=== PATIENT | female | born 1975 | race Caucasian/White ===

== ENCOUNTER 2017-12-22 07:48 | Inpatient (IN) ==
[2017-12-22] MEDS: 0.9 % Sodium Chloride 1,000 ML IVC SCH ×2 (11:39→21:41)
[2017-12-22] MEDS ORDERED: Acetaminophen 325 MG TABLET PO ONE (12:49)
[2017-12-22] MEDS ORDERED: Ibuprofen 400 MG TABLET PO ONE (13:15)
[2017-12-22] MEDS ORDERED: Chloraseptic Spray 177 ML BOTTLE MM PRN (16:55)
[2017-12-22] MEDS: Ketorolac 30 MG/ML VIAL IVP PRN (18:22)
--- NOTE | 2017-12-22 18:40 | Internal Med History&Physical ---
Date of Encounter: 12/22/17 Time of Encounter: 10:00 Internal Medicine - H&P: HPI Chief complaint: Dysuria Admitted From: Hospital to Hospital Transfer Plans for Post Hospital Care: Home History of present illness: Patient is a 41-year-old female with past medical history significant for stage III melanoma in 2002, hypertension and a 20 pack year smoker who presents as a transfer from [facility] due to sepsis secondary to UTI. Patient presented to the [place] [facility] due to a 3-4 day history of fever and chills with a MAXIMUM TEMPERATURE of 103.5 in addition to dysuria and urinary frequency. Patient decided to present to the [place] [facility] for evaluation. Patient was found to have a WBC of 35.7 with a temp of 100.2 and a heart rate of 116 in addition to elevated LFTs. Patient was transferred to [facility] due to sepsis secondary to UTI. Past Med Surg Social Fam HX - Past Medical History Medical history: cancer, DVT, GERD, hypertension, other Additional medical history: Increased heart rate. Stage 3 metastatic melanoma rt groin. Psychiatric history: depression - Past Surgical History Surgical History: cholecystectomy Additional surgical history: Lymph node removal from right groin, right knee surgery, tubal ligation - Social History Smoking Status: Current every day smoker Packs per day: 1 Smokeless Tobacco Status: No Alcohol use: none Drug use: none - Family History Mother Living Status: Still Living Hx Family Cardiac Disorders: Yes (HTN, MITRAL VALVE PROLAPSE) Hx Family Cancer: Yes Internal Medicine - H&P: Meds Baclofen [Lioresal] 10 mg PO TID 12/22/17 [History] Calcium Carbonate/Vitamin D3 [Calcium 500 + Vit D Caplet] 1 tab PO DAILY [History] Cholecalciferol (D-3) [Vitamin D] 2,000 unit PO DAILY 12/22/17 [History] Desipramine [Norpramine] 25 mg PO HS 12/22/17 [History] Diclofenac Sodium [Voltaren] 50 mg PO Q8HR 12/22/17 [History] HydrOXYzine 10 mg PO BID 12/22/17 [History] Hydrochlorothiazide [Microzide] 12.5 mg PO DAILY 12/22/17 [History] Lisinopril [Zestril] 10 mg PO DAILY 12/22/17 [History] Melatonin [Melatin] 9 mg PO HS 12/22/17 [History] Metoprolol [Lopressor] 50 mg PO BID 12/22/17 [History] Omeprazole [PriLOSEC] 40 mg PO DAILY 12/22/17 [History] Ranitidine HCl [Zantac 75] 75 mg PO BID 12/22/17 [History] Venlafaxine [Effexor] 37.5 mg PO BID 12/22/17 [History] 3 Allergy/AdvReac Type Severity Reaction Status Date / Time diphenhydramine AdvReac Palpitation Verified 12/22/17 05:33 [From Benadryl] s All Systems PM: A 10-system review of systems was performed and is negative for pertinent findings except as documented above in the HPI. - Constitutional Vitals: Temp Pulse Resp BP Pulse Ox 99.4 F 125 15 101/66 100 12/22/17 17:00 12/22/17 17:00 12/22/17 17:00 12/22/17 17:00 12/22/17 17:00 General appearance: Present: A&O X 3, no acute distress - Eye Eye exam: Present: normal appearance - ENT ENT exam: Present: mucous membranes moist - Respiratory Respiratory exam: Present: CTAB. Absent: accessory muscle use, rales, rhonchi, wheezes - Cardiovascular Cardiovascular exam: Present: RRR, +S1, +S2. Absent: diastolic murmur, gallop, rubs, systolic murmur - GI/Abdominal GI/Abdominal exam: Present: normal bowel sounds, soft, no peritoneal signs. Absent: distended, tenderness - Extremities Exam Extremities exam: Absent: pedal edema - Neurological Exam Neurological exam: Present: oriented X3 - Psychiatric Psychiatric exam: Present: normal mood - Skin Skin exam: Present: normal color - Assessment and plan (1) Sepsis Current Visit: Yes Status: Acute Assessment and plan: Patient was found to have a WBC of 35.7 with a temp of 100.2 and a heart rate of 116 in addition to elevated LFTs. Patient also with pyuria urinalysis and symptoms of dysuria/and or frequency Will continue IV fluids and IV Zosyn started at [place] [facility] Qualifiers: Sepsis type: sepsis due to unspecified organism Qualified Code(s): A41.9 - Sepsis, unspecified organism (2) UTI (urinary tract infection) Current Visit: No Status: Acute Assessment and plan: Patient with pyuria on urinalysis; urine culture pending Patient's symptomatic so we will continue IV Zosyn as above Qualifiers: Encounter type: initial encounter Qualified Code(s): T83.510A - Infection and inflammatory reaction due to cystostomy catheter, initial encounter; N39.0 - Urinary tract infection, site not specified (3) HTN (hypertension) Current Visit: Yes Status: Acute Assessment and plan: Blood pressure controlled; continue home medications Qualifiers: Hypertension type: essential hypertension Qualified Code(s): I10 - Essential (primary) hypertension (4) DVT prophylaxis Current Visit: Yes Status: Acute Assessment and plan: Subcutaneous heparin - Time Spent With Patient Total time spent is greater than 50% in coordination of care (as documented) at patient's floor/unit and/or counseling patient:
[2017-12-22] MEDS ORDERED: Naloxone 0.4 MG/ML INJ IVP PRN (18:45)
[2017-12-22] MEDS: Famotidine 20 MG TABLET PO SCH (21:40)
[2017-12-22] MEDS: Baclofen 10 MG TABLET PO SCH (21:40)
[2017-12-22] MEDS: Melatonin 3 MG TABLET PO SCH (21:41)
[2017-12-22] MEDS: *HR* Heparin 5,000 UNIT/ML VIAL SQ SCH (21:43)
[2017-12-22] MEDS ORDERED: *HR* HYDROcodone/Acet 7.5/325 mg TABLET PO ONE (23:21)
[2017-12-22] MEDS: Piperacillin/Tazobactam 3.375 GM in 0.9 % Sodium Chloride Mini Bag 100 ML IVPB SCH (23:34)
[2017-12-23 04:46] LABS: Basophils % 0.2 %; Platelet Count 131 K/mcL (140-400)
[2017-12-23 04:47] LABS: Basophils # 0.1 K/mcL (0.0-0.2); Eosinophils # 0.1 K/mcL (0.0-0.6); Eosinophils % 0.4 %; Hematocrit 29.4 % (35.3-44.9); Hemoglobin 9.8 g/dL (11.5-15.4); Immature Granulocytes % 4.4 % (0-4); Lymphocytes # 2.7 K/mcL (0.6-4.6); Lymphocytes % 8.5 %; Mean Corpuscular HGB Conc 33.3 g/dL (31.6-35.5); Mean Corpuscular Hemoglobin 29.3 pg (28.0-33.3); Mean Platelet Volume 11.4 fL (9.4-12.4); Monocytes # 2.8 K/mcL (0.0-1.3); Monocytes % 8.8 %; Red Blood Count 3.34 M/mcL (3.82-4.97); Segmented Neutrophils % 77.7 %
[2017-12-23 04:58] LABS: Neutrophils # 24.9 K/mcL (1.6-8.9)
[2017-12-23 05:07] LABS: BUN/Creatinine Ratio 14 (6-26); Blood Urea Nitrogen 10 mg/dL (6-20); Calcium 8.3 mg/dL (8.6-10.3); Carbon Dioxide 20 mEq/L (23-29); Chloride 113 mEq/L (98-107); Glucose 183 mg/dL (70-105); Osmolality,Calculated 290 (280-300); Potassium 3.6 mEq/L (3.5-5.1); Sodium 138 mEq/L (136-145); eGFR For Non-African Americans > 60 (> 60)
[2017-12-23 05:13] LABS: Platelet Estimate Decreased (Normal)
[2017-12-23] MEDS: *HR* Heparin 5,000 UNIT/ML VIAL SQ SCH ×3 (05:47→21:43)
[2017-12-23] MEDS: Famotidine 20 MG TABLET PO SCH ×2 (08:26→21:43)
[2017-12-23] MEDS: Ketorolac 30 MG/ML VIAL IVP PRN (08:26)
[2017-12-23] MEDS: Baclofen 10 MG TABLET PO SCH ×3 (08:26→21:43)
[2017-12-23] MEDS: Piperacillin/Tazobactam 3.375 GM in 0.9 % Sodium Chloride Mini Bag 100 ML IVPB SCH ×2 (08:27→17:10)
[2017-12-23] MEDS: Cholecalciferol (D-3) 1,000 UNIT TABLET PO SCH (08:27)
[2017-12-23] MEDS ORDERED: *HR* OxyCODONE Immed Rel 5 MG TABLET PO PRN (08:34)
[2017-12-23] MEDS ORDERED: Ketorolac 30 MG/ML VIAL IVP PRN (08:41)
[2017-12-23] MEDS ORDERED: hydroCHLOROthiazide 25 MG TABLET PO SCH (09:00)
[2017-12-23] MEDS: *HR* OxyCODONE/APAP 5/325 TABLET PO PRN ×3 (09:07→19:10)
[2017-12-23] MEDS: (Calcium Carbonate/Vitamin D3 [Calcium 500 + Vit D Ca) PO SCH (09:08)
--- NOTE | 2017-12-23 14:02 | Internal Med Progress Note ---
<Charleen Elliott - Last Filed: 12/23/17 15:29> Hospitalist Progress Note - Encounter Date of Encounter: 12/23/17 Time of Encounter: 13:58 - Subjective Interval History: Patient's a 41-year-old female who presented to the emergency department [place] on 12/22/17 with complaints of fever, chills, dysuria and increased urinary frequency. She was [place] and admitted for sepsis likely secondary to urinary tract infection. Patient does have a history of MRSA bacteremia. Today patient is not feeling well today. Complains of pain in the right flank region that is localized, non radiating, dull achy. Pain also present in lower right abdomen and right sided groin pain. Patient says she had 2 swellings that she suspects are abscesses, one that has burst and is healing on belly the other one in the groin region is healing as well. Pain is sharp, shooting and localized. Positive for chills, sweats, fatigue, suprapubic pressure, R flank pain, dysuria , increased urgency. Denies CP, SOB, DB, Abdominal pain, nausea, vomiting, diarrhea, constipation, hematuria. - Exam Vitals: Temp Pulse Resp BP Pulse Ox 98.1 F 88 17 107/72 95 12/23/17 12:00 12/23/17 12:00 12/23/17 12:00 12/23/17 12:00 12/23/17 12:00 Exam: General: Conversant, No Apparent Distress, able to speak in full sentences and follow commands Neck: No JVD, trachea midline HEENT: PERRL, normocephalic, atraumatic Cardiac: Reg Rate and Rhythm, Normal S1 and S2, No murmurs appreciated Pulmonary: Normal Breath Sounds, No Wheezes, Rales, or Rhonchi, Not in respiratory distress on room air Abdomen: soft, mild suprapubic tenderness, no bruits, no guarding, Neuro: Alert and responsive, No focal deficits noted Vascular: Normal capillary refill Skin: Noted [id number] healing abscess without evidence of induration, erythema, or surrounding warmth in left lower abdomen/pubic area Musculoskeletal: No Chest Wall Tenderness, Right CVA tenderness Extremities: No Clubbing, No Cyanosis, No Edema, Normal Pulses Psych: Normal mood, pleasant, conversant - Assessment and Plan (1) Sepsis Current Visit: Yes Status: Acute Assessment and Plan: * On presentation to [place] the patient had MAXIMUM TEMPERATURE of 100.2, white blood cell count of 35.7 and heart rate of 116 * At this point the patient continues to be intermittently tachycardic but is afebrile. Leukocytosis decreased to 32 today. Will recheck CBC in AM * Given history of MRSA bacteremia we will continue IV Zosyn at 25 mls per hour and IV vancomycin until urine and blood cultures return then will consider narrowing therapy * Likely her source of infection is UTI but should her cultures return unremarkable will investigate the possibility of pyelonephritis versus PID versus bacteremia secondary to cellulitis * Continue on Toradol 15 mg every 6 as needed for mild pain, Percocet 5/325 every 4 hours when necessary for moderate pain, and oxycodone 10 mg every 6 hours for severe pain (2) HTN (hypertension) Current Visit: Yes Status: Acute Assessment and Plan: * Patient continues on home dose of metoprolol 50 mg twice a day * Thus far blood pressures have been stable (3) DVT prophylaxis Current Visit: Yes Status: Acute Assessment and Plan: * Patient continued us on heparin 5000 units subcutaneous every 8 hours for DVT prophylaxis - Time Spent with Patient Total time spent is greater than 50% in coordination of care (as documented) at patient's floor/unit and/or counseling patient: 25 - 35 minutes Plan of Care Discussed with: patient Internal Medicine: Result - Labs CBC & Chem 7: 12/23/17 04:22 12/23/17 04:22 Labs: Short CBC 12/23/17 Range/Units 04:22 WBC 32.0 H* (4.3-11.1) K/mcL Hgb 9.8 L (11.5-15.4) g/dL Hct 29.4 L (35.3-44.9) % Plt Count 131 L (140-400) K/mcL Neutrophils # 24.9 H (1.6-8.9) K/mcL BMP 12/23/17 04:22 Sodium 138 Potassium 3.6 Chloride 113 H Carbon Dioxide 20 L BUN 10 Creatinine 0.73 Glucose 183 H Calcium 8.3 L Consult Discharge Plan - Plan Referrals: Miguel Vang MD [Primary Care Provider] - <Satnam Mullins - Last Filed: 12/24/17 07:39> Hospitalist Progress Note - Encounter Date of Encounter: 12/23/17 - Exam Vitals: Temp Pulse Resp BP Pulse Ox 97.9 F 100 16 121/82 95 12/24/17 07:25 12/24/17 07:25 12/24/17 07:25 12/24/17 07:25 12/24/17 07:25 - Assessment and Plan (1) UTI (urinary tract infection) Current Visit: No Status: Inactive (2) Sepsis Current Visit: Yes Status: Acute (3) HTN (hypertension) Current Visit: Yes Status: Acute (4) DVT prophylaxis Current Visit: Yes Status: Acute - Time Spent with Patient Total time spent is greater than 50% in coordination of care (as documented) at patient's floor/unit and/or counseling patient: Internal Medicine: Result - Labs CBC & Chem 7: 12/24/17 04:17 12/24/17 04:17 Labs: Short CBC 12/24/17 Range/Units 04:17 WBC 15.8 H D (4.3-11.1) K/mcL Hgb 9.1 L (11.5-15.4) g/dL Hct 28.2 L (35.3-44.9) % Plt Count 142 (140-400) K/mcL Neutrophils # 11.4 H (1.6-8.9) K/mcL BMP 12/24/17 04:17 Sodium 138 Potassium 3.7 Chloride 112 H Carbon Dioxide 21 L BUN 10 Creatinine 0.67 Glucose 83 Calcium 8.4 L - Attending Attestation I examined this patient and my medical decision-making was reviewed with the Resident Physician Dr. Elliott. I agree with the documented findings, disposition and treatment plan as described except to the extent set forth below. Ms. Gooden is a 41 y/o F with PMH of Stage 3 melanoma in 2002, HTN and tobacco dependence pt presented to [place] ER fever, chills, b/l flank pain. She does have UTI and possible Pyelonephritis. Pt also mentioned a small abscess in her lower abdomen wall region which was drained before she came to the hospital. Gen: A, A, O x 3 Chest: Diminished BS b/l Abd: small 1x1cm induration noticed over lower abdomen region. Back: Rt CVA tenderness + a/p 1. Sepsis with UTI 2. Concerning for Pyelonephritis IV hydration IV abx Zosyn 3. Abdomen wall abscess no active draiange cont Zosyn and Vancomycin for now since pt had h/o MRSA in the past <Charleen Elliott - Last Filed: 12/23/17 15:29> (1) Sepsis Qualifiers: Sepsis type: sepsis due to unspecified organism Qualified Code(s): A41.9 - Sepsis, unspecified organism (2) HTN (hypertension) Qualifiers: Hypertension type: essential hypertension Qualified Code(s): I10 - Essential (primary) hypertension <Satnam Mullins - Last Filed: 12/24/17 07:39> (1) UTI (urinary tract infection) Qualifiers: Encounter type: initial encounter Qualified Code(s): T83.510A - Infection and inflammatory reaction due to cystostomy catheter, initial encounter; N39.0 - Urinary tract infection, site not specified (2) Sepsis Qualifiers: Sepsis type: sepsis due to unspecified organism Qualified Code(s): A41.9 - Sepsis, unspecified organism (3) HTN (hypertension) Qualifiers: Hypertension type: essential hypertension Qualified Code(s): I10 - Essential (primary) hypertension
[2017-12-23] MEDS: 0.9 % Sodium Chloride 1,000 ML IVC SCH ×2 (14:14→17:27)
[2017-12-23] MEDS: Melatonin 3 MG TABLET PO SCH (21:43)
[2017-12-24] MEDS: *HR* OxyCODONE/APAP 5/325 TABLET PO PRN ×5 (00:21→20:39)
[2017-12-24] MEDS: Piperacillin/Tazobactam 3.375 GM in 0.9 % Sodium Chloride Mini Bag 100 ML IVPB SCH ×3 (01:28→15:11)
[2017-12-24 05:03] LABS: Basophils % 0.3 %; Eosinophils # 0.2 K/mcL (0.0-0.6); Eosinophils % 1.2 %; Hematocrit 28.2 % (35.3-44.9); Hemoglobin 9.1 g/dL (11.5-15.4); Immature Granulocytes % 0.8 % (0-4); Lymphocytes # 2.8 K/mcL (0.6-4.6); Lymphocytes % 17.6 %; Mean Corpuscular HGB Conc 32.3 g/dL (31.6-35.5); Mean Corpuscular Hemoglobin 28.5 pg (28.0-33.3); Mean Corpuscular Volume 88.4 fL (83.0-100.0); Mean Platelet Volume 11.5 fL (9.4-12.4); Monocytes # 1.3 K/mcL (0.0-1.3); Monocytes % 8.2 %; Platelet Count 142 K/mcL (140-400); Red Blood Count 3.19 M/mcL (3.82-4.97); Red Cell Distribution Width 16.4 % (11.5-14.5); Segmented Neutrophils % 71.9 %
[2017-12-24 05:07] LABS: Basophils # 0.1 K/mcL (0.0-0.2); Neutrophils # 11.4 K/mcL (1.6-8.9)
[2017-12-24 05:22] LABS: BUN/Creatinine Ratio 15 (6-26); Blood Urea Nitrogen 10 mg/dL (6-20); Calcium 8.4 mg/dL (8.6-10.3); Carbon Dioxide 21 mEq/L (23-29); Chloride 112 mEq/L (98-107); Glucose 83 mg/dL (70-105); Osmolality,Calculated 284 (280-300); Potassium 3.7 mEq/L (3.5-5.1); Sodium 138 mEq/L (136-145); eGFR For Non-African Americans > 60 (> 60)
[2017-12-24] MEDS: *HR* Heparin 5,000 UNIT/ML VIAL SQ SCH ×3 (06:35→22:05)
[2017-12-24] MEDS: Famotidine 20 MG TABLET PO SCH ×2 (09:22→22:04)
[2017-12-24] MEDS: Cholecalciferol (D-3) 1,000 UNIT TABLET PO SCH (09:23)
[2017-12-24] MEDS: Baclofen 10 MG TABLET PO SCH ×3 (09:23→22:04)
[2017-12-24] MEDS: (Calcium Carbonate/Vitamin D3 [Calcium 500 + Vit D Ca) PO SCH (09:30)
[2017-12-24] MEDS: 0.9 % Sodium Chloride 1,000 ML IVC SCH (09:30)
[2017-12-24] MEDS ORDERED: Ondansetron 4 MG/2 ML VIAL IVP PRN (12:34)
[2017-12-24] MEDS ORDERED: Aminoglycoside Consult 1 EACH MC ONE (14:17)
--- NOTE | 2017-12-24 14:49 | Internal Med Progress Note ---
<Charleen Elliott - Last Filed: 12/24/17 16:58> Hospitalist Progress Note - Encounter Date of Encounter: 12/24/17 Time of Encounter: 16:58 - Subjective Interval History: Patient's a 41-year-old female who presented to the emergency department [place] on 12/22/17 with complaints of fever, chills, dysuria and increased urinary frequency. She was transferred to [place] and admitted for sepsis likely secondary to urinary tract infection. Patient does have a history of MRSA bacteremia. Today she states she is feeling anxious about the amount of fluids she has been given as she was told she has crackles in her lungs. She continues to feel short of breath and has a productive cough. She has declined further IVF as she is worried about the amount of fluids she is getting and their effects on her lungs. Otherwise she has had no difficulty urinating but has had intermittent nausea. - Exam Vitals: Temp Pulse Resp BP Pulse Ox 98.1 F 105 19 133/95 93 12/24/17 10:51 12/24/17 10:51 12/24/17 10:51 12/24/17 10:51 12/24/17 10:51 Exam: General: Conversant, pleasant white female laying in bed, appears anxious, able to speak in full sentences and follow commands Neck: No JVD, trachea midline HEENT: PERRL, normocephalic, atraumatic Cardiac: tachycardic, regular Rhythm, Normal S1 and S2, No murmurs appreciated Pulmonary: Normal Breath Sounds, No Wheezes, Rales, or Rhonchi, Not in respiratory distress Abdomen: soft, tontender, no bruits, no guarding Neuro: Alert and responsive, No focal deficits noted Vascular: Normal capillary refill Skin: small 1x1cm nonindurated abscess in left lower abdomen, unchanged since yesterday, no surrounding erythema or warmth Musculoskeletal: No Chest Wall Tenderness Extremities: No Clubbing, No Cyanosis, No Edema, Normal Pulses Psych: Normal mood, pleasant, conversant - Assessment and Plan (1) Sepsis Current Visit: Yes Status: Acute Assessment and Plan: * At this point the patient continues to be intermittently tachycardic but is afebrile. WBC down to 15.8 today but spiked a fever to 101.9 with SpO2 91% on RA. Given her history of PE and new onset hypoxia will obtain CTA chest. * IVF initially cancelled due to adequate PO intake but given her fever, will add them back at lower rate of 75ml/hour. * Given history of MRSA bacteremia we will continue IV Zosyn at 25 mls per hour but will discontinue vancomycin given the source of her infection was likely urinary and her cellulitic infection is clearing * Urinary culture significant for E. coli resistant to Cipro, bactrim, and levofloxacin, will continue zosyn for the time being then discharge her with narrowed therapy with adequate coverage * Continue on Toradol 15 mg every 6 as needed for mild pain, Percocet 5/325 every 4 hours when necessary for moderate pain, and oxycodone 10 mg every 6 hours for severe pain * Zofran 4mg q 6 prn added for nausea secondary to pain medications (2) HTN (hypertension) Current Visit: Yes Status: Acute Assessment and Plan: * Continues on home dose of lopressor 50mg BID, blood pressures have been stable so far (3) DVT prophylaxis Current Visit: Yes Status: Acute Assessment and Plan: * Continues on heparin 5000U q 8 for DVT prophylaxis - Time Spent with Patient Total time spent is greater than 50% in coordination of care (as documented) at patient's floor/unit and/or counseling patient: 25 - 35 minutes Plan of Care Discussed with: patient Internal Medicine: Result - Labs CBC & Chem 7: 12/24/17 04:17 12/24/17 04:17 Labs: Short CBC 12/24/17 Range/Units 04:17 WBC 15.8 H D (4.3-11.1) K/mcL Hgb 9.1 L (11.5-15.4) g/dL Hct 28.2 L (35.3-44.9) % Plt Count 142 (140-400) K/mcL Neutrophils # 11.4 H (1.6-8.9) K/mcL BMP 12/24/17 04:17 Sodium 138 Potassium 3.7 Chloride 112 H Carbon Dioxide 21 L BUN 10 Creatinine 0.67 Glucose 83 Calcium 8.4 L Consult Discharge Plan - Plan Referrals: Miguel Vang MD [Primary Care Provider] - <Satnam Mullins - Last Filed: 12/24/17 17:21> Hospitalist Progress Note - Encounter Date of Encounter: 12/24/17 - Exam Vitals: Temp Pulse Resp BP Pulse Ox 101.9 F H 110 19 138/83 91 12/24/17 15:45 12/24/17 15:45 12/24/17 15:45 12/24/17 15:45 12/24/17 15:45 - Assessment and Plan (1) UTI (urinary tract infection) Current Visit: No Status: Inactive (2) Sepsis Current Visit: Yes Status: Acute (3) HTN (hypertension) Current Visit: Yes Status: Acute (4) DVT prophylaxis Current Visit: Yes Status: Acute - Time Spent with Patient Total time spent is greater than 50% in coordination of care (as documented) at patient's floor/unit and/or counseling patient: Internal Medicine: Result - Labs CBC & Chem 7: 12/24/17 04:17 12/24/17 04:17 Labs: Short CBC 12/24/17 Range/Units 04:17 WBC 15.8 H D (4.3-11.1) K/mcL Hgb 9.1 L (11.5-15.4) g/dL Hct 28.2 L (35.3-44.9) % Plt Count 142 (140-400) K/mcL Neutrophils # 11.4 H (1.6-8.9) K/mcL BMP 12/24/17 04:17 Sodium 138 Potassium 3.7 Chloride 112 H Carbon Dioxide 21 L BUN 10 Creatinine 0.67 Glucose 83 Calcium 8.4 L - Attending Attestation I examined this patient and my medical decision-making was reviewed with the Resident Physician Dr. Elliott. I agree with the documented findings, disposition and treatment plan as described except to the extent set forth below. Ms. Gooden is a 41 y/o F with PMH of Stage 3 melanoma in 2002, HTN and tobacco dependence pt presented to [place] ER fever, chills, b/l flank pain. She does have UTI and possible Pyelonephritis. Pt also mentioned a small abscess in her lower abdomen wall region which was drained before she came to the hospital. Pt does co severe cough and upper back pain today Gen: A, A, O x 3 Chest: Diminished BS b/l Abd: small 1x1cm induration noticed over lower abdomen region. Back: Rt CVA tenderness + a/p 1. Sepsis with UTI 2. Concerning for Pyelonephritis Cont IV hydration IV abx Zosyn 3. Abdomen wall abscess no active drainage switched to PO Bactrim abx 4. Mild hypoxia and upper back pain concerning for PNA / need to r/o PE will obtain CTA of chest <Charleen Elliott - Last Filed: 12/24/17 16:58> (1) Sepsis Qualifiers: Sepsis type: sepsis due to unspecified organism Qualified Code(s): A41.9 - Sepsis, unspecified organism (2) HTN (hypertension) Qualifiers: Hypertension type: essential hypertension Qualified Code(s): I10 - Essential (primary) hypertension <Satnam Mullins - Last Filed: 12/24/17 17:21> (1) UTI (urinary tract infection) Qualifiers: Encounter type: initial encounter Qualified Code(s): T83.510A - Infection and inflammatory reaction due to cystostomy catheter, initial encounter; N39.0 - Urinary tract infection, site not specified (2) Sepsis Qualifiers: Sepsis type: sepsis due to unspecified organism Qualified Code(s): A41.9 - Sepsis, unspecified organism (3) HTN (hypertension) Qualifiers: Hypertension type: essential hypertension Qualified Code(s): I10 - Essential (primary) hypertension
[2017-12-24] MEDS ORDERED: Isovue-370 500 ML INFUS..BTL IV ONE (16:57)
[2017-12-24] MEDS ORDERED: Ibuprofen 600 MG TABLET PO PRN (17:29)
[2017-12-24] MEDS: Melatonin 3 MG TABLET PO SCH (22:05)
[2017-12-25] MEDS: Piperacillin/Tazobactam 3.375 GM in 0.9 % Sodium Chloride Mini Bag 100 ML IVPB SCH ×4 (00:21→23:53)
[2017-12-25] MEDS: 0.9 % Sodium Chloride 1,000 ML IVC SCH ×2 (00:23→14:37)
[2017-12-25] MEDS: *HR* OxyCODONE/APAP 5/325 TABLET PO PRN ×4 (01:34→20:49)
[2017-12-25] MEDS: *HR* Heparin 5,000 UNIT/ML VIAL SQ SCH ×3 (05:24→22:25)
[2017-12-25] MEDS: Cholecalciferol (D-3) 1,000 UNIT TABLET PO SCH (08:24)
[2017-12-25] MEDS: Baclofen 10 MG TABLET PO SCH ×3 (08:25→20:26)
[2017-12-25] MEDS: Famotidine 20 MG TABLET PO SCH ×2 (08:25→20:26)
--- NOTE | 2017-12-25 10:15 | Internal Med Progress Note ---
<TrianaJames - Last Filed: 12/25/17 15:21> Hospitalist Progress Note - Encounter Date of Encounter: 12/25/17 Time of Encounter: 09:45 - Subjective Interval History: Pt seen and examined. She states she is feeling better yesterday in terms of her breathing. States she has some mild chest discomfort with cough and has had change in sputum production from clear to yellow. Also complaining of diarrhea, 6-7 episodes yesterday and 3 so far today, very watery. - Exam Vitals: Temp Pulse Resp BP Pulse Ox 98.9 F 93 18 148/100 95 12/25/17 07:27 12/25/17 07:27 12/25/17 07:27 12/25/17 07:27 12/25/17 07:27 Exam: Gen: NAD, alert, awake HEENT: NCAT, EOMI, neck supple, no LAD Cardiac: RRR, no murmur Lungs: CTAB Abd: bruising in RLQ from heparin shots Ext: no edema, erythema Neuro: appropriate affect, answers questions appropriately - Assessment and Plan (1) Sepsis Current Visit: Yes Status: Acute Assessment and Plan: Secondary to UTI as UA positive for E. Coli resistant to flouroquinolones and bactrim Had recent fever of 101.9 yesterday and cultures collected, preliminarily negative White count improved from 32 to 15.8, will recheck CBC tomorrow Continue patient on Zosyn for now (2) History of pulmonary embolism Current Visit: Yes Status: Acute Assessment and Plan: Patient admits to having "5 blood clots in her lungs" earlier this year in May which was managed in [place] Was never put on ferry terminal agent anticoagulation CTA ordered, will place powerglide to give contrast (3) HTN (hypertension) Current Visit: Yes Status: Chronic Assessment and Plan: Blood pressures most recently well controlled Continue home Metoprolol (4) DVT prophylaxis Current Visit: Yes Status: Acute Assessment and Plan: Heparin SQ 5000 units TID - Time Spent with Patient Total time spent is greater than 50% in coordination of care (as documented) at patient's floor/unit and/or counseling patient: Internal Medicine: Result - Labs CBC & Chem 7: 12/24/17 04:17 12/24/17 04:17 Consult Discharge Plan - Plan Referrals: Miguel Vang MD [Primary Care Provider] - <Thallapaneni,Rambabu - Last Filed: 12/25/17 18:24> Hospitalist Progress Note - Encounter Date of Encounter: 12/25/17 - Exam Vitals: Temp Pulse Resp BP Pulse Ox 98.4 F 93 18 138/84 98 12/25/17 15:16 12/25/17 15:16 12/25/17 15:16 12/25/17 15:16 12/25/17 15:16 - Assessment and Plan (1) UTI (urinary tract infection) Current Visit: No Status: Inactive (2) Sepsis Current Visit: Yes Status: Acute (3) HTN (hypertension) Current Visit: Yes Status: Chronic (4) DVT prophylaxis Current Visit: Yes Status: Acute - Time Spent with Patient Total time spent is greater than 50% in coordination of care (as documented) at patient's floor/unit and/or counseling patient: Internal Medicine: Result - Labs CBC & Chem 7: 12/24/17 04:17 12/24/17 04:17 - Attending Attestation I examined this patient and my medical decision-making was reviewed with the Resident Physician Dr. Triana. I agree with the documented findings, disposition and treatment plan as described except to the extent set forth below. Ms. Gooden is a 41 y/o F with PMH of Stage 3 melanoma in 2002, HTN and tobacco dependence pt presented to [place] ER fever, chills, b/l flank pain. She does have UTI and possible Pyelonephritis. Pt also mentioned a small abscess in her lower abdomen wall region which was drained before she came to the hospital. Pt states she is feeling better today Gen: A, A, O x 3 Chest: Diminished BS b/l Abd: small 1x1cm induration noticed over lower abdomen region. Back: Rt CVA tenderness + a/p 1. Sepsis with UTI 2. Concerning for Pyelonephritis Cont IV hydration IV abx Zosyn 3. Abdomen wall abscess no active drainage switched to PO Bactrim abx 4. Mild hypoxia and upper back pain 5. h/o PE concerning for PNA / need to r/o PE Waiting on CTA of chest <James Triana - Last Filed: 12/25/17 15:21> (1) Sepsis Qualifiers: Sepsis type: sepsis due to unspecified organism Qualified Code(s): A41.9 - Sepsis, unspecified organism (3) HTN (hypertension) Qualifiers: Hypertension type: essential hypertension Qualified Code(s): I10 - Essential (primary) hypertension <Satnam Mullins - Last Filed: 12/25/17 18:24> (1) UTI (urinary tract infection) Qualifiers: Encounter type: initial encounter Qualified Code(s): T83.510A - Infection and inflammatory reaction due to cystostomy catheter, initial encounter; N39.0 - Urinary tract infection, site not specified (2) Sepsis Qualifiers: Sepsis type: sepsis due to unspecified organism Qualified Code(s): A41.9 - Sepsis, unspecified organism (3) HTN (hypertension) Qualifiers: Hypertension type: essential hypertension Qualified Code(s): I10 - Essential (primary) hypertension
[2017-12-25] MEDS: Melatonin 3 MG TABLET PO SCH (20:26)
[2017-12-26 03:55] LABS: Basophils % 0.4 %; Eosinophils # 0.2 K/mcL (0.0-0.6); Eosinophils % 2.2 %; Hematocrit 26.6 % (35.3-44.9); Hemoglobin 8.9 g/dL (11.5-15.4); Immature Granulocytes % 0.9 % (0-4); Immature Platelets 4.7 % (1.1-6.1); Mean Corpuscular HGB Conc 33.5 g/dL (31.6-35.5); Mean Corpuscular Hemoglobin 28.8 pg (28.0-33.3); Mean Corpuscular Volume 86.1 fL (83.0-100.0); Mean Platelet Volume 10.4 fL (9.4-12.4); Monocytes # 1.3 K/mcL (0.0-1.3); Monocytes % 17.4 %; Neutrophils # 3.3 K/mcL (1.6-8.9); Platelet Count 196 K/mcL (140-400); Red Blood Count 3.09 M/mcL (3.82-4.97); Red Cell Distribution Width 15.9 % (11.5-14.5); Segmented Neutrophils % 43.1 %
[2017-12-26 03:59] LABS: Lymphocytes # 2.7 K/mcL (0.6-4.6)
[2017-12-26 05:02] LABS: BUN/Creatinine Ratio 16 (6-26); Blood Urea Nitrogen 11 mg/dL (6-20); Calcium 8.8 mg/dL (8.6-10.3); Carbon Dioxide 26 mEq/L (23-29); Chloride 106 mEq/L (98-107); Glucose 84 mg/dL (70-105); Osmolality,Calculated 287 (280-300); Potassium 3.6 mEq/L (3.5-5.1); Sodium 139 mEq/L (136-145); eGFR For Non-African Americans > 60 (> 60)
[2017-12-26] MEDS: *HR* Heparin 5,000 UNIT/ML VIAL SQ SCH ×2 (05:08→14:06)
[2017-12-26] MEDS: Baclofen 10 MG TABLET PO SCH (08:35)
[2017-12-26] MEDS: Cholecalciferol (D-3) 1,000 UNIT TABLET PO SCH (08:35)
[2017-12-26] MEDS: Famotidine 20 MG TABLET PO SCH (08:35)
[2017-12-26] MEDS: *HR* OxyCODONE/APAP 5/325 TABLET PO PRN (08:36)
[2017-12-26] MEDS: Piperacillin/Tazobactam 3.375 GM in 0.9 % Sodium Chloride Mini Bag 100 ML IVPB SCH (08:37)
[2017-12-26] MEDS ORDERED: levoFLOXacin 750 MG TABLET PO SCH (10:45)
[2017-12-26 11:41] VITALS: BP 124/78
--- NOTE | 2017-12-26 12:02 | Discharge Summary ---
<Charleen Elliott - Last Filed: 12/26/17 16:29> - NOTES TO OUTPATIENT PROVIDER Notes to Outpatient Provider: Given augmentin and levaquin course for UTI and suspected atypical pneumonia. Orders not resulted at time of discharge: Pending orders 12/24/17 18:20 Culture,Blood [BC] Routine Date of Encounter: 12/26/17 Time of Encounter: 11:52 - Discharge Diagnosis (1) Sepsis Priority: Primary Status: Acute Qualifiers: Sepsis type: sepsis due to unspecified organism Qualified Code(s): A41.9 - Sepsis, unspecified organism (2) HTN (hypertension) Priority: Secondary Status: Chronic Qualifiers: Hypertension type: essential hypertension Qualified Code(s): I10 - Essential (primary) hypertension (3) DVT prophylaxis Priority: Secondary Status: Acute Hospital course: Ms. Gooden is a 41 year old female who is transferred [facility] on for suspected urosepsis given urinary complaints and leukocytosis. She was treated with IV Vancomycin and Zosyn pending urine and blood cultures. Urine cultures revealed infection with Escherichia coli. Since time of admission patient has had no growth on her blood cultures. On 12/24 she spiked a fever thus repeat blood cultures were redrawn. She otherwise continued to complain of shortness of breath and given her history of DVT, tachycardia, and hypoxia she underwent CTA chest which revealed no evidence of pulmonary embolism but did reveal effusion and questionable consolidation. On discharge the patient was feeling significantly improved, not requiring any supplemental oxygen and was requesting discharge home. She was complaining of some loose stools C. difficile toxins were negative. She was discharged on a seven-day course of Levaquin and Augmentin. The patient is to follow-up with her primary care physician within the next week. Discussed the need for smoking cessation. Patient agrees with and understands the course of treatment plan including plan for discharge and follow-up. All questions answered. Discharge discussed with: patient, nurse Time spent discussing smoking cessation with patient: more than 10 minutes - Time Spent with Patient Total time spent providing and/or coordinating discharge services: Greater than 30 minutes - Discharge Medications Prescriptions: Amoxicillin/Clavulanate [Augmentin] 875 mg PO BIDWM 7 Days #14 tablet levoFLOXacin [Levaquin] 750 mg PO DAILY 7 Days #13 tablet Home Medications: Baclofen [Lioresal] 10 mg PO TID 12/22/17 [History] Calcium Carbonate/Vitamin D3 [Calcium 500 + Vit D Caplet] 1 tab PO DAILY [History] Cholecalciferol (D-3) [Vitamin D] 2,000 unit PO DAILY 12/22/17 [History] Desipramine [Norpramine] 25 mg PO HS 12/22/17 [History] Diclofenac Sodium [Voltaren] 50 mg PO Q8HR 12/22/17 [History] HydrOXYzine 10 mg PO BID 12/22/17 [History] Hydrochlorothiazide [Microzide] 12.5 mg PO DAILY 12/22/17 [History] Lisinopril [Zestril] 10 mg PO DAILY 12/22/17 [History] Melatonin [Melatin] 9 mg PO HS 12/22/17 [History] Metoprolol [Lopressor] 50 mg PO BID 12/22/17 [History] Omeprazole [PriLOSEC] 40 mg PO DAILY 12/22/17 [History] Ranitidine HCl [Zantac 75] 75 mg PO BID 12/22/17 [History] Venlafaxine [Effexor] 37.5 mg PO BID 12/22/17 [History] Amoxicillin/Clavulanate [Augmentin] 875 mg PO BIDWM 7 Days #14 tablet 12/26/17 [ Rx] levoFLOXacin [Levaquin] 750 mg PO DAILY 7 Days #13 tablet 12/26/17 [Rx] Allergies/Adverse Reactions: 3 Allergy/AdvReac Type Severity Reaction Status Date / Time diphenhydramine AdvReac Palpitation Verified 12/22/17 05:33 [From Minor] s Date of admission: 12/22/17 09:39 Primary care physician: Miguel Vang MD Consults: 12/25/17 07:27 Consult to Invasive Line Access Team [CONS] Routine Reason for Consult: limited vascular access. Need upper arm for CT with contrast Line Type: EPIV Discharging clinician: Charleen Elliott Anticipated date of discharge: 12/26/17 - Constitutional Vitals: Temp Pulse Resp BP Pulse Ox 97.8 F 73 18 124/78 96 12/26/17 11:40 12/26/17 11:40 12/26/17 11:40 12/26/17 11:40 12/26/17 07:51 General appearance: Present: A&O X 3, no acute distress Exam: General: Patient seen walking without discomfort or instability. Patient is a well appearing white female in no acute distress. Conversant, able to speak in full sentences and follow commands Neck: No JVD, trachea midline HEENT: PERRL, normocephalic, atraumatic Cardiac: Reg Rate and Rhythm, Normal S1 and S2, No murmurs appreciated Pulmonary: Normal Breath Sounds, No Wheezes, Rales, or Rhonchi, Not in respiratory distress, not on supplemental oxygen Abdomen: soft, tontender, no bruits, no guarding Neuro: Alert and responsive, No focal deficits noted Vascular: Normal capillary refill Skin: No rashes noted on visualized skin Musculoskeletal: No Chest Wall Tenderness Extremities: No Clubbing, No Cyanosis, No Edema, Normal Pulses Psych: Normal mood, pleasant, conversant - Patient Status Disposition: Home, Self-Care Condition: Good Functional capacity at discharge: independent ambulation Overall status at discharge: patient is progressing back to baseline - Discharge Instructions Instructions: Urinary Tract Infection in Women (DC) Follow Up With: Miguel Vang MD [Primary Care Provider] - (appt requested ) Forms: Work/School Release Additional Instructions: - Please take the full course of antibiotics including azithromycin and levofloxacin. - Please follow up with your primary care physician for further evaluation in the next week. - Please make an effort to stop smoking. - Return to the emergency department should you develop any chest pain, shortness of breath, or any other symptoms worrisome to you. - Diet and Activity Activity: increase activity as tolerated Diet: advance to your usual diet <Satnam Mullins - Last Filed: 12/26/17 17:28> Orders not resulted at time of discharge: Pending orders 12/24/17 18:20 Culture,Blood [BC] Routine Date of Encounter: 12/26/17 - Discharge Diagnosis (1) UTI (urinary tract infection) Status: Inactive Qualifiers: Encounter type: initial encounter Qualified Code(s): T83.510A - Infection and inflammatory reaction due to cystostomy catheter, initial encounter; N39.0 - Urinary tract infection, site not specified (2) Sepsis Status: Acute Qualifiers: Sepsis type: sepsis due to unspecified organism Qualified Code(s): A41.9 - Sepsis, unspecified organism (3) HTN (hypertension) Status: Chronic Qualifiers: Hypertension type: essential hypertension Qualified Code(s): I10 - Essential (primary) hypertension (4) DVT prophylaxis Status: Acute Hospital course: Ms. Gooden is a 41 year old female - Time Spent with Patient Total time spent providing and/or coordinating discharge services: Date of admission: 12/22/17 09:39 Primary care physician: Miguel Vang MD Consults: 12/25/17 07:27 Consult to Invasive Line Access Team [CONS] Routine Reason for Consult: limited vascular access. Need upper arm for CT with contrast Line Type: EPIV - Constitutional Vitals: Temp Pulse Resp BP Pulse Ox 97.8 F 73 18 124/78 96 12/26/17 11:40 12/26/17 11:40 12/26/17 11:40 12/26/17 11:40 12/26/17 07:51 - Attending Attestation I examined this patient and my medical decision-making was reviewed with the Resident Physician Dr. Triana. I agree with the documented findings, disposition and treatment plan as described except to the extent set forth below. Ms. Gooden is a 41 y/o F with PMH of Stage 3 melanoma in 2002, HTN and tobacco dependence pt presented to [facility] fever, chills, b/l flank pain. She does have UTI and possible Pyelonephritis. Pt also mentioned a small abscess in her lower abdomen wall region which was drained before she came to the hospital. Pt states she is feeling better today Gen: A, A, O x 3 Chest: Diminished BS b/l Abd: small 1x1cm induration noticed over lower abdomen region. Back: Rt CVA tenderness + a/p 1. Sepsis with UTI 2. Concerning for Pyelonephritis Improved switched to PO Abx 3. Abdomen wall abscess no active drainage switched to PO Bactrim abx 4. Acute PNA - mostly bacterial / atypical infection reviewed CTA Started on PO Abx Levaquin r/o PE stable to d/c home today
== END 2017-12-26 14:18 | disposition home or self-care (01) | DRG 720 ==
LOC: 2NENU 09:39
PROVIDERS: ADMIT Hospitalist; ATTEND Hospitalist